=== PATIENT | female | born 1965 | race Caucasian/White ===

== ENCOUNTER 2019-10-17 05:49 | Day surgery (SDC) | payer BC ==
[~2019-10-17] VITALS: Ht 165.1 cm; Wt 97.0 kg
[~2019-10-17 05:49] MED LIST: NO HOME MEDICATIONS; NORCO 325 MG-51 TAB PO; PROMETHAZINE12.5 M5 PO
[2019-10-17 06:28] VITALS: BP 152/90; PULSE 73; TEMP 98.2
[2019-10-17 07:47] VITALS: BP 149/89; PULSE 68
--- NOTE | 2019-10-17 07:47 | NUR ---
Patient returns to room per cart from surgery accompanied by Shonda Mosley CRNA and Azucena COOPER. Patient is awake and alert. Denies pain or nausea. Dressing clean and dry on the right arm and arm elevated on the pillow. IV infusing. Siderails up x2 and call light in reach. Allowed to rest.
[2019-10-17 08:02] VITALS: BP 141/83; PULSE 63
--- NOTE | 2019-10-17 08:02 | NUR ---
Resting and sipping on water. Continues to deny pain or nausea.
[2019-10-17] MEDS ORDERED: NORCO 325 MG-51 TAB PO (08:03)
[2019-10-17 08:17] VITALS: BP 133/83; PULSE 63
--- NOTE | 2019-10-17 08:17 | NUR ---
Sipping on water and eating applesauce. Continues to deny pain or nausea.
[2019-10-17 08:32] VITALS: BP 144/85; PULSE 60
--- NOTE | 2019-10-17 08:32 | NUR ---
Left arm dressing dry and the right arm elevated on pillow.
--- NOTE | 2019-10-17 08:45 | NUR ---
IV discontinued and site is free of redness. Assisted up to the bathroom and gait is steady.
--- NOTE | 2019-10-17 09:00 | NUR ---
Dismissal instructions given and voices understanding of these. Provided script for Destin 5mg.
--- NOTE | 2019-10-17 09:06 | NUR ---
Patient dismissed to home per private vehicle driven by daughter and taken to the front door per wheelchair and assisted into car with dismissal instructions in hand.
== END 2019-10-17 09:06 | disposition home or self-care (01) ==
LOC: SDCO 05:49
DX: G56.01 Carpal tunnel syndrome, right upper limb (principal); M19.042 Primary osteoarthritis, left hand; M19.041 Primary osteoarthritis, right hand; R51 Headache
CPT/HCPCS: J2405; J2704; J3010; J7120

== ENCOUNTER 2020-05-06 10:23 | Day surgery (SDC) | payer BC ==
[2020-05-06] VITALS (9 sets, daily range): BP systolic 109–153; BP diastolic 51–78; PULSE 60–84; TEMP 97.8–98.3
[~2020-05-06] VITALS: Ht 165.1 cm; Wt 96.2 kg
[2020-05-06] MEDS ORDERED: PROTONIX 40MG T40 MG PO (10:42)
[2020-05-06] MEDS ORDERED: COLACE 100100 MG/CAP PO (12:37)
[2020-05-06] MEDS ORDERED: NORCO 325 MG-51 TAB PO (12:38)
--- NOTE | 2020-05-06 15:45 | NUR ---
PATIENT ADMITED INTO ROOM 349 POST OP RECTUS FASCIA SLING. ORIENTED BUT VERY DROWSY. VSS. NO C/O PAIN AT THIS TIME. VAG PACKING INPLACE. PERALES TO DD WITH SMALL AMOUNT OF CLEAR YELLOW URINE. IV FLUIDS INFUSING INTO LEFT HAND IV. PATIENT SLEEPING COMFORTABLY. HEAD TO TOE ASSESSMENT COMPLETE. NO OTHER NEEDS. CALL LIGHT IN REACH.
--- NOTE | 2020-05-06 21:00 | NUR ---
PATIENT RESTING IN BED. TURNED O2 DOWN TO 1 L VIA NASAL CANNULA. OXYGEN 95%. VITAL SIGNS ARE STABLE. PATIENT COMPLAINING OF 7/10 PAIN IN HER LOWER ABDOMEN. ADMINISTERED 1 PERCOCET PER ORDERS. PATIENT REPORTED HER PAIN WAS BETTER.
[2020-05-07 03:53] VITALS: BP 109/55; PULSE 83; TEMP 98.2
--- NOTE | 2020-05-07 05:48 | NUR ---
GEOVANY PERALES. TOOK OUT VAGINAL PACKING PER ORDERS. PATIENT TOLERATED WELL. PATIENT STATES SHE HAS SOME PAIN BUT DOES NOT WANT TO TAKE ANYTHING FOR IT YET.
[2020-05-07 07:35] VITALS: BP 127/66; PULSE 65; TEMP 97.4
--- NOTE | 2020-05-07 08:00 | NUR ---
Patient Romero removed. She is not yet able to void. Incisions edges well approximated. Ivf. Tolerating diet. Percocet for pain per request.
--- NOTE | 2020-05-07 08:51 | NUR ---
Patient having urine retention. Se Hinds notifed, he is to call & retrun call to this nurse
--- NOTE | 2020-05-07 09:35 | NUR ---
Pt doing well at this time with no complaints. IV to INT at this time. Tolerating PO with no issues. Will continue to monitor
--- NOTE | 2020-05-07 10:45 | NUR ---
Initial visit; Patient thanked Change Control Specialist for looking in on her and offering God's blessings.
--- NOTE | 2020-05-07 10:55 | NUR ---
Patient feels better after straight cath. She continues to push Po fluids, she is trying to relax to void.
--- NOTE | 2020-05-07 11:09 | NUR ---
Patient not able to void. Se Hinds notifed. Orders obtained. Acuna to be inserted & education for acuna at home care to be provided.
--- NOTE | 2020-05-07 13:00 | NUR ---
Patient ready for discharge. 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 Patient discharging home with a leg bag. Supplies sent home with patient. She is disappointed about having to go home with Acuna, aware of follow up appt that is scheduled for her & acuna removal. Patient home meds list reviewed & scripts were sent to pharmacy of choice. medication safety reviewed. Activity & diet restrictions reviewed. Incisions care discussed. Patient wheeled out with all belongings & denies questions or concerns.
== END 2020-05-07 13:41 | disposition home or self-care (01) ==
LOC: SDCO 10:23 → SURG 15:45 → SDCO 05-07 13:41
DX: N36.42 Intrinsic sphincter deficiency (ISD) (principal); N39.3 Stress incontinence (female) (male); R39.15 Urgency of urination; I10 Essential (primary) hypertension; Z20.828 Contact with and (suspected) exposure to other viral communicable diseases; Z79.899 Other long term (current) drug therapy; Z80.41 Family history of malignant neoplasm of ovary
CPT/HCPCS: OP; A4314; C1762; J0690; J1100; J1885; J2405; J2550; J2704; J3010; J7120

== ENCOUNTER 2020-05-13 00:58 | Emergency (ER) | payer BC ==
[~2020-05-13] VITALS: Ht 165.1 cm; Wt 95.9 kg
[~2020-05-13 00:58] MED LIST changes: +COLACE 100100 MG/CAP PO; +PROTONIX 40MG T40 MG PO
[2020-05-13 01:55] VITALS: BP 137/78; PULSE 74; TEMP 97.3
== END 2020-05-13 01:55 | disposition home or self-care (01) ==
LOC: COL.ER 00:58
DX: N20.0 Calculus of kidney (principal); R33.9 Retention of urine, unspecified

== ENCOUNTER 2020-05-20 09:04 | Day surgery (SDC) | payer BC ==
[~2020-05-20] VITALS: Ht 165.1 cm; Wt 96.3 kg
[2020-05-20 09:38] VITALS: BP 148/84; PULSE 67; TEMP 97.9
--- NOTE | 2020-05-20 09:51 | NUR ---
TO RM 5 AT 0917- CALL LIGHT IN REACH
[2020-05-20 12:25] VITALS: BP 140/69; PULSE 64; TEMP 97.4
--- NOTE | 2020-05-20 12:25 | NUR ---
TO RM 5 PER CART FROM PACU. ALERT ORIENTED X3, TALKING TO STAFF. DENIES PAIN OR DISCOMFORT. DENIES N/V. UPON RETURNING TO PATIENT AMBULATED TO BATHROOM. VOIDED AND AMBULATED BACK TO .
[2020-05-20 12:40] VITALS: BP 145/66; PULSE 62
--- NOTE | 2020-05-20 12:40 | NUR ---
RECEIVED SPRITE AND RAUDEL. PUMARICELING.
--- NOTE | 2020-05-20 13:10 | NUR ---
RECEIVED DISHCARGE INSTRUCTIONS AND VERBALIZED UNDERSTANDING. DISCONTINUED IV AND INT- CATHETER INTACT. PATIENT TEXTED FOR RIDE. PATIENT AMBULATED TO BATHROOM 2ND TIME. PATIENT GETTING DRESSED.
[2020-05-20 13:22] VITALS: BP 140/69; PULSE 67; TEMP 98.4
--- NOTE | 2020-05-20 13:45 | NUR ---
DISCHARGED PER WC BY NURSING STAFF TO PRIVATE CAR IN CARE OF TIFFANIE.
== END 2020-05-20 14:29 | disposition home or self-care (01) ==
LOC: SDCO 09:04
DX: N36.42 Intrinsic sphincter deficiency (ISD) (principal); R39.15 Urgency of urination; R39.12 Poor urinary stream; R33.8 Other retention of urine; I10 Essential (primary) hypertension; Z79.899 Other long term (current) drug therapy; Z79.2 Long term (current) use of antibiotics; Z80.41 Family history of malignant neoplasm of ovary; Z96.0 Presence of urogenital implants
CPT/HCPCS: J0690; J1100; J1885; J2405; J3010; J7120